=== PATIENT | female | born 1990 | race American Indian/Alaskan Native ===

== ENCOUNTER 2020-02-20 03:09 | Emergency (ER) | payer SELFPAY ==
[2020-02-20] MEDS ORDERED: IBUPROFEN 800 MG TAB PO ONE (04:04)
[2020-02-20] MEDS ORDERED: HYDROcodone/ACETAMINOPHEN 5-325 MG TAB PO ONE (04:04)
--- NOTE | 2020-02-20 04:07 | Emergency Department Report ---
ED HPI - General Chief complaint: Vaginal Bleeding Stated complaint: ABD PAIN/VAGINAL BLEEDING Time Seen by Provider: 02/20/20 04:03 Source: patient, EMS Mode of arrival: Stretcher Limitations: No Limitations - History of Present Illness Initial comments: 29-year-old female, G5, P2, currently 12 weeks with a molar , presents to ED with possible miscarriage. Patient states she began having crampy abdominal pain and vaginal bleeding earlier in the evening. Patient reports passage of products. OB: Dr. Alia Adhikari MD Complaint: abdominal pain, vaginal bleeding -: This morning Severity: moderate Quality: cramping Consistency: other (Now improved) Improves with: none Worsens with: none Associated symptoms: vaginal bleeding Vaginal bleeding: heavy :: Yes Number of weeks : 12 OB History - Current : other (Molar ) - Related Data Allergies Allergy/AdvReac Type Severity Reaction Status Date / Time No Known Allergies Allergy Unverified 02/20/20 04:00 ED Review of Systems ROS: Stated complaint: ABD PAIN/VAGINAL BLEEDING Other details as noted in HPI Comment: All other systems reviewed and negative Gastrointestinal: abdominal pain Genitourinary: other (Reports vaginal bleeding) ED Past Medical Hx - Past Medical History Previous Medical History?: No - Surgical History Past Surgical History?: Yes Additional Surgical History: c section x2 - Social History Smoking Status: Never Smoker Substance Use Type: Other ED Physical Exam - General Limitations: No Limitations General appearance: alert, in no apparent distress - Head Head exam: Present: atraumatic, normocephalic - Eye Eye exam: Present: normal appearance - ENT ENT exam: Present: mucous membranes moist - Neck Neck exam: Present: normal inspection - Respiratory Respiratory exam: Present: normal lung sounds bilaterally. Absent: respiratory distress - Cardiovascular Cardiovascular Exam: Present: regular rate, normal rhythm - GI/Abdominal GI/Abdominal exam: Present: soft, tenderness. Absent: distended - External exam: Present: other (No active bleeding) - Extremities Exam Extremities exam: Present: normal inspection - Neurological Exam Neurological exam: Present: alert, oriented X3 - Psychiatric Psychiatric exam: Present: normal affect, normal mood - Skin Skin exam: Present: warm, dry, intact, normal color ED Course Vital Signs 02/20/20 02/20/20 02/20/20 03:15 03:30 04:15 Temperature 98.5 F Pulse Rate 70 75 76 Respiratory 20 18 11 L Rate Blood Pressure 128/71 147/78 134/74 Blood Pressure 128/71 [Left] O2 Sat by Pulse 100 98 99 Oximetry 02/20/20 02/20/20 02/20/20 05:15 05:30 05:41 Temperature Pulse Rate 74 81 Respiratory 11 L 15 18 Rate Blood Pressure 129/83 132/79 Blood Pressure [Left] O2 Sat by Pulse 98 99 Oximetry ED Medical Decision Making - Lab Data Result diagrams: 02/20/20 04:11 02/20/20 04:11 - Radiology Data Radiology results: report reviewed, image reviewed - Medical Decision Making 29-year-old female presents to ED for miscarriage. Patient states she is 12 weeks with a molar . Patient is scheduled to have a D&C. Began having abdominal cramping and bleeding tonight. Patient passed POC's and these were sent to pathology. Ultrasound still shows some POC's in the uterus. Patient reports cramping and bleeding have improved significantly. Vital signs are stable. 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 Will discharge at this time. - Differential Diagnosis Miscarriage, ectopic Critical care attestation.: If time is entered above; I have spent that time in minutes in the direct care of this critically ill patient, excluding procedure time. ED Disposition Clinical Impression: Incomplete miscarriage Disposition: DC-01 TO HOME OR SELFCARE Is pt being admited?: No Condition: Stable Instructions: Spontaneous Miscarriage (ED) Referrals: PRIMARY [facility] [Referring] - 02/20/20 Time of Disposition: 05:49
[2020-02-20 04:33] LABS: Basophils % (Auto) 0.2 % (0.0-1.8); Eosinophils % (Auto) 0.2 % (0.0-4.3); Hematocrit 36.9 % (30.3-42.9); Hemoglobin 12.2 gm/dl (10.1-14.3); Lymphocytes # (Auto) 1.2 K/mm3 (1.2-5.4); Lymphocytes % (Auto) 10.2 % (13.4-35.0); Mean Corpuscular HGB Conc 33 % (30-34); Mean Corpuscular Volume 81 fl (79-97); Monocytes # (Auto) 0.4 K/mm3 (0.0-0.8); Monocytes % (Auto) 3.9 % (0.0-7.3); Platelet Count 189 K/mm3 (140-440); Red Blood Count 4.56 M/mm3 (3.65-5.03); Red Cell Distribution Width 14.1 % (13.2-15.2)
[2020-02-20 04:52] LABS: Blood Urea Nitrogen 7 mg/dL (7-17); Calcium 9.3 mg/dL (8.4-10.2); Hemolysis Index 5
[2020-02-20 05:09] LABS: BUN/Creatinine Ratio 12
--- NOTE | 2020-02-20 05:31 | Ultrasound Report ---
OBSTETRICAL ULTRASOUND. HISTORY: Abdominal pain. Evaluate . FINDINGS: The uterus measures 17.3 x 8.3 x 10 cm. Endometrial stripe measures 2 cm and is heterogeneo us. No intrauterine or significant endometrial vascularity. A hypoechoic lesion in the cerv ix measures 4.3 x 3.2 cm. A hyperechoic area which is mildly heterogeneous is seen posterior to the e ndometrial stripe towards the fundus measuring 4.2 cm. This demonstrates increased vascularity. There is no associated prominent cystic change Right ovary measures 3.1 x 2 x 2.3 cm. Left ovary measures 3.8 x 1.5 x 2.9 cm. Both ovaries demonstra te flow. Negative for adnexal mass or fluid. IMPRESSION: 1. No intrauterine or adnexal mass. 2. Heterogeneous endometrial stripe which is thickened. 3. Hyperechoic vascular area towards the fundus posteriorly. This is of uncertain etiology. Different ial diagnosis includes adenomyosis or early atypical presentation of molar . Classic cystic degeneration is not present. 4. Indeterminate cervical lesion. Most likely, this represents a fibroid. Signer Name: Niles Aguilar MD Signed: 02/20/2020 5:26 AM Workstation Name: [id number]
[2020-02-20 06:26] VITALS: BP 143/58
== END 2020-02-20 06:25 | disposition home or self-care (01) ==
LOC: ED 03:09
DX: O03.4 Incomplete spontaneous abortion without complication (principal); Z79.899 Other long term (current) drug therapy; Z98.890 Other specified postprocedural states; Z3A.12 12 weeks gestation of pregnancy
CPT/HCPCS: 36415; 76801; 80048; 84702; 85025; 86850; 86900; 86901; 88305